=== PATIENT | female | born 1990 | race Two or more races ===

== ENCOUNTER 2023-04-03 17:13 | Emergency (ER) | payer OTHER ==
[~2023-04-03] VITALS: Ht 152.4 cm; Wt 65.8 kg
[2023-04-03] MEDS ORDERED: METAXALONE800 MG PO (19:53)
[2023-04-03] MEDS ORDERED: CELEBREX200MG PO (19:53)
[2023-04-03] MEDS ORDERED: MEDROLPACK PO (19:53)
== END 2023-04-03 20:21 | disposition home or self-care (01) ==
LOC: EDBD 17:14 → ER 17:14
DX: M62.838 Other muscle spasm (principal); J06.9 Acute upper respiratory infection, unspecified; Z20.822 Contact with and (suspected) exposure to COVID-19